=== PATIENT | female | born 1940 | race Caucasian/White ===

== ENCOUNTER 2019-12-28 13:52 | Inpatient (IN) | payer OTHER ==
[~2019-12-28] VITALS: Ht 170.2 cm; Wt 55.5 kg
--- NOTE | ~2019-12-28 | D ---
Formerly [facility] [place] [address] DISCHARGE SUMMARY Name: MCKENNA REY Room #: 519A-A [facility] IN M.R.#: [id number] Admission: 12/28/19 Attend Phys: Pierce Day DO Discharge: 01/12/20 Date of : 38 Report #: [id number] THIS REPORT FOR: cc: KARY - Family physician unknown FAM - Family physician unknown Pierce Day DO ~ THIS REPORT FOR: //name// CC: Pierce PRESTON unknown DATE OF SERVICE: 01/12/2020 INPATIENT PSYCHIATRIC DISCHARGE SUMMARY ATTENDING PHYSICIAN: Pierce Day DO. REBAR BENDER AT THE TIME OF DISCHARGE: Mike Taveras MD DISCHARGE DIAGNOSES: Major neurocognitive disorder, likely due to Alzheimer disease with behavioral disturbance, improved. She also had a complicating delirium due to electrolyte imbalance. Risk of breast cancer treatment suspended. DISCHARGE PLAN: The patient is discharging to ____. The granddaughter, Monika, who was involved in this case. DISCHARGE DIET: Includes a regular. She should get Magic Cup and pudding with meals. Her BMI is 19.2 kilos, as she is underweight. DISCHARGE MEDICATIONS: Xarelto 20 mg p.o. daily with dinner; isosorbide mononitrate 15 mg p.o. daily for cardiovascular disease; metoprolol tartrate 25 mg p.o. b.i.d., hold if heart rate less than 60; Depakote sodium 250 mg p.o. at 0900, 1500 and 2100 for mood stabilization; olanzapine 2.5 mg p.o. in the morning and 6.25 mg p.o. at bedtime for psychosis; Lasix 10 mg p.o. daily, which is her home dose so that was continued; 1000 mcg oral daily B12, 5 mg p.o. at bedtime melatonin for sleep. Melatonin should be given immediately prior to sleep. LABORATORY DATA: Significant laboratories on this admission, white count ____, H and H 12.7 and 38.9, platelet count 202. Also, since the patient was recently on chemotherapy, her absolute neutrophil count was 2.6, which was normal, so she is not leukopenic. Chemistry: Sodium 144, potassium 4.1, chloride 106, bicarbonate 29, anion gap 9, BUN 28, creatinine 0.7, estimated GFR 81, glucose 83, calcium 8.9, total bilirubin 0.3, AST slightly high at 46, ALT low at 23, alkaline phosphatase 57. Ammonia level 15. Total protein 6.3, albumin 3.4. Formerly [facility] [address] [place] [address] DISCHARGE SUMMARY Name: MCKENNA REY [facility] Room #: 519A-A [facility] IN ..#: [id number] Admission: 12/28/19 Attend Phys: Pierce Day, Discharge: 01/12/20 Date of : 38 Report #: [id number] All the chemistry studies were again from 01/10/2020. Urinalysis was last done on 01/02/2020 and was grossly abnormal. The patient did culture positive for Citrobacter freundii, which was actually resistant to Rocephin, but sensitive to Bactrim and she was initially treated with Levaquin. The patient will receive Psychiatric and medical care, I believe, at [facility]. REASON FOR ADMISSION: Back in December is as follows: An 79-year-old female admitted to the [facility] [place] on 12/21/2019. She was admitted there for confusion and was rehydrated unclear why she was there about a week. In any event, we accepted her as a transfer from [facility]. HOSPITAL COURSE: The patient was admitted to Geriatric Psychiatry Unit. The patient early on had some periods of combativeness, agitation. We ____ addressed these with increasing doses of olanzapine, also increased her Depakote, I believe she was on a tiny dose, coming in to 250 mg 3 times a day. The blood level done on 01/01/2020 was 64 and one on 01/10/2020 remained in same range of 59 ____ therapeutic. The patient has had relatively poor intake. The last half or so of the admission, Dr. aTveras did give her suppository on day of discharge. Unfortunately, this is likely going to be a failure to thrive situation with degree of her dementia. PHYSICAL EXAMINATION: VITAL SIGNS: At time of discharge, temperature 36.3, pulse 61, respirations 16, BP 134/50, O2 sat 94%. MUSCULOSKELETAL: Gait not tested, seated in a Beti chair. Variable difficulty arousing today. MENTAL STATUS EXAMINATION: This is a well-developed, ill-appearing, unkempt female appearing older than stated age. Attention impaired. Concentration impaired. Speech variably spontaneous. Some psychomotor retardation. Mood and affect were congruent and constricted. She denied SI, HI. Denied auditory, visual or tactile hallucinations. ____. Memory not formally tested. Insight impaired, judgment impaired. Fund of knowledge well below average. PROGNOSIS: For this patient is guarded to poor given her age of 79, multiple morbidities and advanced major neurocognitive disorder and difficulties over recent months. By: [id number] Pierce Day, DO /nt
[2019-12-28 17:06] VITALS: BP 127/88
--- NOTE | 2019-12-28 17:41 | NUR ---
PT. ARRIVED 1735 TODAY ON STRETCHER. PT. IS AMBULATORY, WHITE, 79 YEAR OLD FEMALE. SHE IS ABOUT 5 FT. 6 INCHES TALL AND WEIGHS 134 LBS. SHE WAS UNCOOPERATIVE AND COMBATIVE WITH ADMISSION PROCESS. SHE SLAPPED THIS ACTIVITIES THERAPIST ON ARM SEVERAL TIMES. SHE PUSHED THE PACKAGE DYEING MACHINE OPERATOR WHEN ATTEMPTED TO TAKE HER PICTURE. SHE HAS BEEN AGRESSIVE, CRYING AND ARGUMENATIVE. SHE WILL NOT ANSWER ANY QUESTIONS. SHE WILL NOT GIVE ANY INFORMATION ABOUT HERSELF. REPORT FROM [facility] RN STATED SHE LIVES WITH HER . ACCORDING TO THE RN AT [facility] SHE WAS GIVEN GEODON YESTERDAY FOR HER BEHAVIORS. SHE HAS A PMHX OF AFIB, RT. BREAST CANCER AND LUMPECTOMY AND HAS A LEFT CHEST PORT FOR CHEMOTHERAPY, SHE HAS A RIGHT SIDED CHEST PACEMAKER, HYSTERECTOMY. SHE IS ON A HEART HEALTHY DIET, SHE IS ALLERGIC TO IODINE, AND SULFA ANTIBIOTICS. FAMILY REPORTS SHE IS ON ROCEPHEN FOR UTI THAT WAS NOT CORRECTED WHILE SHE WAS ON KEFLEX. HER FAMILY REPORTS SHE HAS AUDITORY HALLUCINATIONS WITH UTI'S. HER , JOSE J, IS HER DPOA. HIS PHONE NO. IS [phone]. HER DAUGHTER, HIMANSHU, HELPS WITH HER MEDICATIONS. HER PHONE NO. IS [phone]. SHE IS ALERT AND ORIENTED TIMES ONE (TO HER NAME ONLY).
--- NOTE | 2019-12-29 03:36 | NUR ---
12-28-19 CARE TRANSFERRED 1899 OBSERVED PT STANDING AT NURSING STATION PULLING ON DOOR. 193 PT AAOX1, VSS, RR EVEN AND NONLABORED ON RA, PT COMBATIVE THROUGHOUT ASSESSMENT. PT DENIES PAIN AND SI/HI. PT HAS MULTI CONTUSION BI-LAT IN FOREARMS. PT REPORTS HER IS STANDING RIGHT BESIDE HER AND PT BECOMES AGITATED WITH RN REDIRECTION. DURIN GMEDICATION ADMIN PT HAD NO DIFFICULTIES AND ALLOWED A MANUAL PULSE TO BE TAKEN PT P 68. LATER ASSISTED PT TO BATHROOM AND PT PRESENTS CONFUSED BUT CALM, URINE YELLOW, NO SEDIMENT OR FOUL ODOR NOTED IN TOLIET. LATER PT WAS ASSISTED TO BED AND BED POSITION FOR COMFORT. LATER NOTED PT UP AND PACING, THEN NOTED PT GOING INTO ANOTHER PT ROOM, WHEN TRYING TO REDIRECT PT BECAME COMBATIVE AND STARTING PINCHING AND HITTING. WHILE WALKING WITH PT OUT OF ROOM, PT SAT DOWN RN CONTROLLED MOVEMENT TO GROUND, THEN PT STARTED YELLING AND KICKING. ALL THREE RN'S ASSISTED WITH CONTAINMENT OF PT FOR PT AND STAFF SAFETY. THIS RN WENT TO REVIEWE EMAR WHILE SENIOR RD ENGINEER AND 2ND RN STAYED WITH PT FOR HER SAFETY. REVIEW OF EMAR 4MG HALDOL IM AVAILABLE FOR SEVERE AGITATION. 4MG HALDOL WAS ADMIN INTO RT BUTTOCKS. PT CONTINUE TO HIT AND KICK AT STAFF PT WAS PLACED IN SEBASTIAN CHAIR FOR PT SAFETY AND CLOSE OBSERVATION IN DAY ROOM. A BLANKET WAS GIVEN FOR PT COMFORT. LATER NOTED PT RESTING IN SEBASTIAN CHAIR WITH EYES CLOSED. ZERO S/S OF ACUTE DISTRESS NOTED, PT WILL CONTINUE TO BE MONITOR PER [facility] PROTOCOL.
[2019-12-29 07:32] VITALS: BP 117/92
--- NOTE | 2019-12-29 10:11 | NUR ---
AGUSTINA contacted Liam at [phone]. No answer. AGUSTINA left ms. AGUSTINA team will continue to follow pt during his stay on this unit.
--- NOTE | 2019-12-29 12:50 | NUR ---
PATIENT WAS UP, AND OUT SITTING IN A CHAIR IN DAYROOM WHEN CARE ASSUMED. PATIENT IS ALERT, AND ORIENTED X 1, SHE IS FORGETFUL, AND VERY CONFUSED. PATIENT TOOK MORNING MEDICATION WHOLE WITHOUT LOTS OF ENCOURAGEMENT. PATIENT IS EATING MEALS, AND DRINKING FLUID WELL, FEEDS SELF. PATIENT CONSUMED 100% BREAKFAST, ABOUT 50% LUNCH. PATIENT HAS BEEN CALM, COOPERATIVE WITH CARE. HOSPITAL GOWN CHANGED TO [facility]'S OWN OUTFIT. PATIENT HAD LARGE FORMED BOWEL MOVEMENT THIS MORNING. AFFECT IS SAD/ANGRY, MOOD IS DEPRESSED, WORRIED. PATIENT DENIES HAVING PHYSICAL PAIN. PATIENT AMBULATES WITH SLOW STEADY GAIT. NO AGITATION, AGGRESSIVE BEHAVIOR NOTED AT THIS TIME. NO SIGN OF ACUTE DISTRESS NOTED, WILL MONITOR FOR SAFETY.
[2019-12-29 19:30] VITALS: BP 126/80
--- NOTE | 2019-12-30 04:37 | NUR ---
12-29-19 CARE TRANSFERRED AT 1900 OBSERVED PT STANDING BY NURSING STATION. RECEIVED REPORT FROM GRAIN OPERATIONS MANAGER PT REFUSED VS. 1909 PT AAOX1, RR 18 EVEN AND NONLABORED ON RA, SKIN W/D. PT DENIES PAIN AND SI/HI. PT PRESENTS IRRITABLE AND COMBATIVE DURING NURSING ASSESSMENT REFUSING PT WAS REAPPROACHED 1929 PULSE 111, 02 SAT 94%, PT WOUND NOT ALLOW B/P. PT REAPPROACHED BY INVENTORY ASSISTANT AND B/P 126/80. PT INITIALLY REFUSED HS SNACK, THEN ASKED AGAIN AND PT ATE 100% ICE CREAM CUP. DURING MEDICATION ADMIN PT PRESENTS CONFUSED AND TALKING ABOUT PLACING EVERYTHING INTO THE RIGHT SPOT AND WAS SHOWING AND SHARING HOW SHE WAS ORGANIZING THE TISSUE BOX. PT DID NOT HAVE ANY DIFFICULTIES TAKING MEDICATION WHOLE WITH WATER. LATER PT WENT INTO ANOTHER ROOM AND GRAIN OPERATIONS MANAGER WAS TRYING TO REDIRECT HER WHEN PT BECAME COMBATIVE, ALL RN'S STEP IN AND ASSISTED REDIRECTING PT BACK TO HER OWN ROOM, PT BECAME SEVERALY AGITATED AND BEGAIN HITTING AT NURSING STAFF. 4MG HALDOL ADMIN IM IN BUTTOCKS, PT CONTINUE HITTING STAFF AND PT WAS PLACED IN GERICHAIR FOR PT AND STAFF SAFETY AND PLACED IN DAY ROOM FOR CLOSE OBSERVATION. PT CHAIR WAS PLACED IN COMFORTABLE POSITION WITH BLANKET. LATER NOTED PT WAS CALM AND RESTING WITH EYES CLOSED. NO S/S OF ACUTE DISTRESS NOTED, PT WILL CONTINUE TO BE MONITOR PER [facility] PROTOCOL.
[2019-12-30 11:19] VITALS: BP 120/87
--- NOTE | 2019-12-30 15:07 | NUR ---
12/30/19 DAY SHIFT-PATIENT WAS IN DAYROOM SITTING ON A GERICHAIR ASLEEP WHEN CARE ASSUMED. WHEN AWOKEN, BREAKFAST OFFERED, SHE CONSUMED 100%. PATIENT BECAME IRRITABLE, RESISTING CARE, REFUSED VITAL SIGNS. IT TOOK THREE STAFF, TO ASSIST ON GETTING PATIENT'S VITAL SIGNS. SHE REQUESTED TO BE TAKEN TO THE BATHROOM, TWO STAFF ASSISTED PATIENT TO BATHROOM. PATIENT INITIALLY CHOOSE NOT TO TAKE MORNING MEDICATIONS, BUT WITH LOTS OF ENCOURAGEMENT FROM MULTIPLE STAFF, SHE WAS ABLE TO TAKE THE MEDS WHOLE IN APPLE SOURCE. PATIENT IS IMPULSIVE, IRRITABLE, ATTEMPTING TO SCRATCH, KICK, AND HIT STAFF WHEN ASSISTING HER WITH ADL. PATIENT REMAIN ALERT, AND ORIENTED X 1, SHE IS FORGETFUL, VERY CONFUSED. PATIENT DENIES SUICIDAL/HOMICIDAL IDEATION, NOT ABLE TO APPROPRIATELY RESPOND TO FURTHER ASSESSMENT QUESTIONS DUE TO COGNITIVE IMPAIRMENT. PATIENT CURRENTLY IN DAYROOM, SITTING IN GERICHAIR. NO SIGN OF ACUTE DISTRESS NOTED AT THIS TIME, WILL CONTINUE TO REDIRECT, AND MONITOR FOR SAFETY.
--- NOTE | 2019-12-30 16:54 | NUR ---
AGUSTINA and Dr. Day spoke with Monika about pt and obtained hx. Placement for pt was discussed and it was decided that she will talk with her grandfather, pt's , about funding sources. She also met with an family law attorney. SW team will continue to follow pt during her stay on this unit.
[2019-12-30 19:47] VITALS: BP 126/55
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
[2019-12-31 07:32] VITALS: BP 138/69
--- NOTE | 2019-12-31 08:56 | NUR ---
0700 ASSUMED CARE OF PATIENT, PATIENT SITTING IN GERICHAIR AT THAT TIME. PATIENT SITTING QUIETLY AFTER BREAKFAST. 0850 MEDICATIONS TAKEN WHOLE WITH APPLES SAUCE WITHOUT DIFFICULTY. SOME COUGHING AFTER DRINKING H2O NOTED. NO C/O PAIN STATES "JUST MY STOMACH IS UPSET". PATIENT C/O BEING A BIT COLD. PATIENT HAS BLANKET ON. WILL CONTINUE TO OBSERVE
--- NOTE | 2019-12-31 09:12 | NUR ---
0700 ASSUMED CARE OF PATIENT, PATIENT SITTING IN DAYROOM AT THAT TIME. PATIENT SITTING WITH OTHERS QUIETLY. 0820 PATIENT EATING BREAKFAST. 08 MEDICATIONS TAKEN WHOLE WITHOUT DIFFICULTY. PATIENT CALM AND COOPERATIVE. DENIES NEEDS AT THAT TIME. 904 PATIENT C/O GONZALEZ, TYLENOL 650MG PO GIVEN. PATIENT PRESENT IN GROUP AT THIS TIME.
--- NOTE | 2019-12-31 18:43 | NUR ---
PATIENT NOTED TO HAVE INCREASSED AGGRESSIVNESS WITH CARE. 1500 PATIENT REFUSED MEDICATION, STOCK TRACER CRUSHED MEDICATION AND ATTEMPTED TO GIVE WITH NO SUCCESS. ATTEMPTED AN HOUR LATER AND PATIENT CONTINUED TO REFUSE MEDICATION. DR NOTIFIED ORDER RECIEVED. OLANZAPINE 5MG IM GIVEN TO LEFT DELTOID. PATIENT ATE ONLY A FEW BITES OF DINNER. PATIENT CALM AT THAT TIME.
[2019-12-31 19:20] VITALS: BP 127/54
--- NOTE | 2020-01-01 02:29 | NUR ---
Assumed pt's care this pm shift. Pt was on a ascencion-chair in the dayroom at time of assessment. Pt was easily irritable with care. Meds were crushed and mixed in vanilla pudding. At first, pt declined meds, started slapping her left lap in frustration and in aggitation. Pt declined meds at that time. Nursing held off meds for about 30 mins, went back to pt with meds. Pt took meds at that time and also ate the rest of the wholel cup of pudding. Pt and peer Gemma were sitted across from each other and were talking nonsensical to each other. Pt now in bed and sleeping. Will continue to monitor.
[2020-01-01 07:51] VITALS: BP 142/89
--- NOTE | 2020-01-01 09:19 | NUR ---
0700 ASSUMED CARE OF PATIENT. PATIENT IN DAYROOM SITTING IN SEBASTIAN CHAIR. PATIENT SITTING QUIETLY UNTIL PATIENT IS ASKED QUESTIONS. MEDICATIONS CRUSHED IN APPLESAUCE, PATIENT ONLY HAD A FEW BITED THEN REFUSED MEDICATION. PATIENT BECOMES IRRITABLE PUSHING WRITERS HAND AWAY REFUSING MEDICATION AND BREAKFAST. CONTINUES TO SIT IN DAYROOM WITH EYES CLOSED AT THIS TIME.
--- NOTE | 2020-01-01 12:45 | NUR ---
AGUSTINA spoke with Monika at [phone] who says they have decided that pt will be private pay. However, they are intersted in facities that may take pt on Medicaid at a later date. AGUSTINA sent Monika a list from the medicare.gov website to destiny@[employer] and to Liam at [email or web address]. Monika and AGUSTINA will touch bases on Saturday on what facilities she and Liam want referrals sent to. Monika also said she will try to talk with pt today and convince her to take her medications. AGUSTINA team will continue to follow pt during her stay on this unit.
--- NOTE | 2020-01-01 15:46 | NUR ---
1430 PATIENT TO ROOM VIA SEBASTIAN CHAIR. TRANSFERED TO BED X 2 ASSIST. PATIENTS BRIEF CHANGED, URINE NOTED TO BRIEF. PATIENT COMBATIVE WITH CARES, HITTING AND PINCHING. PATIENT CONTINUES TO SPEAK NONSENSE IN REGARDS TO HOW SHE NEEDS TO GET TO HER AND CARE FOR HIM WELL YELLING AT STAFF TO STOP AND LEAVE HER ALONE. PATIENT REMAINS IN BED WITH EYES CLOSED. 1500 PATIENT HAS EYES CLOSED AND REFUSING TO TAKE MEDICATION, DR MIMS. WILL CONTINUE TO OBSERVE.
--- NOTE | 2020-01-01 18:07 | NUR ---
PATIENT RECIEVED PHONE CALL AROUND 1630, PATIENT ANSWERING SIMPLE QUESTIONS ON THE PHONE. PATIENT CONTINUED TO REST IN BED WITH EYES CLOSED. 1715 MEDICATION GIVEN CRUSHED IN MAGIC CUP, PATIENT ATE ALL 4OZ OF MAGIC CUP. DURING THIS TIME PATIENT TALKING TO SELF TALKING ABOUT PUPPES, FATHER AND GRANDFATHER. PATIENT DID MENTION HOW GOOD THE MAGIC CUP WAS. FEATHER WASHER ASKED APTIENT ABOUT PAIN AND PATIENT RESPONDED WITH "NO". AFTER EATING PATIENT WAS CHANGED WITH ASSIT X2. PATIENT VOIDED X1. PATIENT REPOSITIONED TO BACK AT THAT TIME. PATIENT IN BED RESTING QUIETLY.
[2020-01-01 19:33] VITALS: BP 135/88
--- NOTE | 2020-01-02 02:14 | NUR ---
PT IS CONFUSED. BEEN IN BED SINCE START OF SHIFT. PT OBSERVED WITH MILD AGITATION AT THE START OF SHIFT, BUT SLOWLY SETTLED DOWN. SHE TOOK ALL HER MEDS CRUSHED AND IN PUDDING. IT TAKES A WHILE BECAUSE SHE RESISTS AND PRESENTS SOME SLIGHT AGGRESSION.PT BEEN RESTING IN BED QUIETLY SINCE TAKING MEDS.
[2020-01-02 08:00] VITALS: BP 109/62
--- NOTE | 2020-01-02 09:10 | NUR ---
0700 ASSUMED CARE OF PATIENT, PATIENT IN BED WITH EYES CLOSED. VS BP-109/62 P-97, RESP 16, TEMP- 97.6, O2 SATS- 92%. 0810 MEDICATIONS GIVEN CRUSHED WITH SOME RESISTANCE. PATIENT STATING "I JUST WANT TO SLEEP, LEAVE ME ALONE". AFTER TAKING MEDICATION IN OATMEAL, PATIENT REFUSES TO EAT MORE. WILL CONTINUE TO OBSERVE
--- NOTE | 2020-01-02 11:42 | NUR ---
1130 PATIENT IN BED WITH EYES CLOSED, PCAX2 IN ROOM TO CHANGE PT. BRIEF CHANGED WITH VOID X1. PATIENT IS AGGRESSIVE WITH CARE, PATIENT DUG HER NAILS INTO OFFSET PRESS OPERATOR'S ARM. PATIENT STATES "I LOVE MY PARENT, I JUST WANT TO SEE MY MOM AND DAD". UNABLE TO OBTAIN UA AT THIS TIME. PATIENT TRANSFERED TO SEBASTIAN CHAIR THEN OUT TO DAYROOM FOR LUNCH. UNABLE TO ASK PATIENT QUESTIONS, PATIENT STARTS TALKING ABOUT HER PARENTS. WILL CONTINUE TO OBSERVE
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
--- NOTE | 2020-01-02 15:15 | NUR ---
PATIENT ONLY ATE A 20 % OF LUNCH THEN PUSHED AWAY STAFF WHEN TRYING TO ASSIST WITH MEAL. PATIENT DRANK 200 CC OF ENSURE. PATIENT SITTING IN DAYROOM IN GERICHAIR RESTING WITH EYES CLOSED AT TIMES. 1510 MEDICATION GIVEN CRUSHED IN YOGURT WITHOUT DIFFICULTY. AFTER A FEW BITES PATIENT REFUSING TO EAT MORE OF YOGURT.
[2020-01-02 18:40] LABS: URINE CLARITY CLOUDY; URINE COLOR YELLOW; URINE GLUCOSE-RANDOM* NEGATIVE (Negative); URINE KETONES NEGATIVE (Negative); URINE PROTEIN (DIPSTICK) 2+ (Negative)
[2020-01-02 18:41] LABS: URINE BILIRUBIN NEGATIVE (Negative); URINE BLOOD 3+ (Negative); URINE LEUKOCYTES-REFLEX 3+ (Negative); URINE NITRITE-REFLEX NEGATIVE (Negative); URINE UROBILINOGEN 0.2 E.U./dl (0.2-1.0)
[2020-01-02 18:42] LABS: BACTERIA-REFLEX >30 Many /HPF (None Seen); CASTS None Seen /LPF (None Seen); CRYSTALS None Seen /LPF (None Seen); SQUAMOUS 4-10 Moderate /LPF (0-3); URINE WBC-REFLEX >25 Many /HPF (0-5)
[2020-01-02 18:43] LABS: URINE RBC 3-10 Few /HPF (0-2)
[2020-01-02 20:22] VITALS: BP 125/80
--- NOTE | 2020-01-03 01:28 | NUR ---
PATIENT ASSESSED AND IS ALERT X SELF. IS DELUSIONAL AT TIMES. SITS IN CHAIR AND COMPLAINS AND IS COMBATIVE WITH CARES. IS A VERY POOR EATER TODAY. TAKEN ALL MEDS EXCEPT SMALL I/2 TEASPOON OF MED IN APPLESAUSE.KEEP PUTTING UP HER GOWN IN CHAIR. RESP EVEN AND UNLABORED. NO EDEMA NOTED. SITS IN SEBASTIAN CHAIR FOR THE DAY. LIVES AT HOME WITH HER AND GRANDDAUGHTER. NO SI/HI NOTED. IN CONT OF BOWEL AND BLADDER. REMAINS DELUSIONAL THIS SHIFT. DID SLEEP FAIRLY WELL.CONT PLAN OF CARE. WAS COMBATIVE ON HER CARES AT BEDTIME. LUNGS CTA.
--- NOTE | 2020-01-03 10:49 | NUR ---
0700 ASSUMED CARE OF PATIENT, PATIENT IN BED WITH EYES CLOSED AT THAT TIME. PATIENT DID NOT COME OUT TO DAYROOM FOR BREAKFAST, PATIENT REFUSED. 0850 ELECTRICAL MANUFACTURING TECHNICIAN TO ROOM, ELECTRICAL MANUFACTURING TECHNICIAN WAKES PATIENT UP, PATIENT REPOSITIONED WITH HEAD UP. MEDICATIONS GIVEN CRUSHED IN YOGURT, TAKEN WITHOUT DIFFICULTY. PATIENT FINISHED CONTANER OF YOGURT 4OZ. PATIENT CLEANED UP, BRIEF CHANGED AND TRANSFERED TO SEBASTIAN CHAIR X2 ASSIST. PATIENT IS AWAKE AND MORE ALERT THEN PREVIOUS DAYS. ORIENTED TO SELF. PATIENT IS ASKING FOR AND BELIEVES SHE NEEDS TO LOOK FOR HIM. PATIENT IS CALM AND WAS NOT COMBATIVE WITH CARES THIS AM. PATIENT TO DAYROOM, BREAKFAST HEATED UP AND PATIENT ATE ALL OF FILIPINO TOAST (2 FULL SLICES), 2 OZ OF YOGURT, 4 OZ OF APPLE JUICE AND 4 OZ OF H2O. 1030 FAMILY CALLED PATIENT AND PATIENT TALKED ON PHONE X 10 MIN. PATIENT IS CONFUSED AND RAMBLING ON TO SPOUSE ON PHONE. PATIENT RESTING WITH EYES CLOSED IN GERICHAIR AT THIS TIME. WILL CONTINUE TO OBSERVE.
[2020-01-03 19:24] VITALS: BP 120/79
--- NOTE | 2020-01-04 03:41 | NUR ---
PATIENT RESTING IN SEBASTIAN-CHAIR AT BEGINNING OF SHIFT. REFUSED MEDICATION FROM THIS NURSE WHICH WAS CRUSHED AND MIXED WITH PUDDING ON THE FIRST OFFERING. PATIENT WAS TALKING ABOUT HER SON WANTING THIS NURSE TO CHECK ON HIM. NO SUCCESS WITH REORIENTATING PATIENT WHO SLIGHTLY PUSHED MY ARM AWAY WITH MEDICATION. AFTER MEDICATING OTHER PATIENTS SHE WAS APPROACHED WITH MEDS AND TOOK THEM RIGHT AWAY. REMAINED IN CHAIR THROUGHOUT THE NIGHT. WILL MONITOR.
[2020-01-04 08:50] VITALS: BP 95/70
--- NOTE | 2020-01-04 10:31 | NUR ---
PATIENT CARE ASSUMED AT 0700 - IN SEBASTIAN CHAIR - ALERT TO SELF ONLY - CONFUSED - RAMBLES ON BUT STATEMENTS JUMBLED AND NON SENSIBLE. POOR APPETITE - EASILY DISTRACTED - NO FOCUS. MEDICATIONS CRUSHED AND GIVEN IN PUDDING - RELUCTANT AT FIRST AND TOOK SEVERAL SPOONS AND REFUSED REMAINER BUT ABLE TO ADMINISTER MEDS. INCONTINENT OF BOWEL AND BLADDDER. ASSISTED TO BATHROOM BY STAFF. PATIENT AFFECT FLAT AND MOOD DETACHED AND RESISTIVE TO CARES. DOES NOT KNOW HER LIMITATIONS AND MARGY FALL RISK. MONITORING NEEDED -
--- NOTE | 2020-01-04 13:11 | NUR ---
AGUSTINA received an email from Monika stating she is narrowing her choices for placement and will have a list by end of . SW team will continue to follow pt during her stay on this unit.
--- NOTE | 2020-01-04 15:14 | NUR ---
RT Progress Note- Mary's participation in the milieu and recreation therapy groups has been limited. Mary has been present in morning groups but lacks participation d/t cognition. RT staff will continue to encourage participation to her ability to provide her with structured leisure.
[2020-01-04 19:25] VITALS: BP 102/65
--- NOTE | 2020-01-04 22:25 | NUR ---
Care assumed of patient at 1915: Patient seated in dayroom in ascencion chair at start of shift. Patient alert and oriented to person only. Patient confused and forgetful. Patient having constant, disorganized speech. Patient having difficulty answering yes/no questions. Patient originally irritable and frustrated with nurse yelling "go away". Patient then speaking about how her " is a grown man and can make his own decisions, he doesn't have to stay here if he doesn't want to". No s/s of SI/HI/AH/VH. No physical aggression shown at this time. Patient observed speaking about a democrat and verbally making democrat plans and guest lists. Patient took HS medication crushed in pudding with some initial resistance. Metoprolol was held due to HR reading of 57. Patient was able to report her name and answer that she was not in any pain. No other information was able to be obtained. Patient is currently resting in recliner in dayroom. Frequently waking up and showing restlessness.
[2020-01-05 07:35] VITALS: BP 116/50
--- NOTE | 2020-01-05 09:45 | NUR ---
AGUSTINA spoke with Monika who said her and her grandfather have chosen [facility]. AGUSTINA provided her an update. AGUSTINA received a message from Shelly with [facility] asking her to return her call at [phone]. She asked AGUSTINA to fax her a referral to [phone]. AGUSTINA explained pt is not yet ready, but AGUSTINA will provide updates to her every few days. AGUSTINA team will continue to follow pt during her stay on this unit.
--- NOTE | 2020-01-05 10:39 | NUR ---
PATIENT CARE ASSUMED 0700 - IN DINING ROOM WHEN ARRIVAL ON UNIT. PATIENT SLEEPING IN SEBASTIAN CHAIR. DIFFICULT TO AROUSE.SEVERAL ATTEMPTS MADE - WOULD NOT RESPOND TO ENCOURAGEMENT TO EAT BREAKFAST OR TAKE MORNING MEDICATIONS. REFUSED TO OPEN MOUTH - REPEATEDLY STATING TIRED AND WANTED TO RETURN TO BED. AT 0900 DR. MANNING PLACED ORDER FOR LEVOFLOXAIN FOR UTI DIAGNOSIS BASED ON LAB RESULTS. BY THIS TIME PATIENT SEMI ALERT AND ONCE AGAIN APPROACHED WITH ANTIBIOTIC. ADMINISTERED IN PUDDING ONCE AGAIN CRUSHED AND AFTER REPEATED TRIES FINALLY TOOK WITH PUDDING. SHE CALLS OUT FOR UNKNOWN INDIVIDUAL - ALERT TO SELF AND RAMBLE ON MAKING JUMBLED AND SCRAMBLED THOUGTH PATTERN STATEMENTS INTERMITTENTLY. CURRENTLY DOZING OFF ONCE AGAIN IN SEBASTIAN CHAIR - STATELY VERY TIRED AND DOES NOT FEEL WELL BUT UNABLE TO EXPAND ON THIS. STAFF CONTINUES TO MOITOR PATIENT FOR ANY CHANGES INBEHAVIOR OR CONCERNS AND WILL ADDRESS IF NEEDED.
[2020-01-05 19:21] VITALS: BP 105/41
--- NOTE | 2020-01-05 22:41 | NUR ---
Care assumed of patient at 1915: Patient seated at dining table at start of shift. Patient alert and oriented to person only. Patient pleasantly confused. Patient displayed some disorganized speech but was rather alert and able to converse this evening. When asked if she was having pain, patient said that her tongue hurt. Upon assessment, tongue is cracked, dark red with yellow/white discoloration to top of tongue. Dr. Day on unit and notified. Patient was provided ice cream for HS snack. Patient was able to feed self full cup of ice cream independently. Patient did report that the cold helped reduce pain. Patient took HS medication crushed in pudding without issue then continued to feed self 50% of pudding cup. Patient incontinent of bladder. Cooperative with staff assist x1 with tim care and linen change. No physical or verbal aggression shown. Patient calm and cooperative this evening. Presents with flat affect. Patient having difficulty falling asleep this evening and is currently seated in recliner in dayroom.
[2020-01-06 08:45] VITALS: BP 131/40
--- NOTE | 2020-01-06 09:34 | NUR ---
0700 ASSUMED CARE OF PATIENT, PATIENT SITTING IN SEBASTIAN CHAIR IN DAYROOM. PATIENT HAS EYES CLOSED OFF AND ON. 0820 MEDICATIONS GIVEN CRUSHED WITHOUT DIFFICULTY. PATIENT DID NOT EAT BUT A FEW BITES OF BREAKFAST. PATIENT REMAINS IN DAYROOM WITH EYES CLOSED AT THIS TIME
--- NOTE | 2020-01-06 13:18 | NUR ---
AGUSTINA contacted Shelly with [facility] to provide an update and request palliative care for pt. No answer. AGUSTINA left [facility] [place].
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
--- NOTE | 2020-01-06 18:24 | NUR ---
PATIENT CONTINUES TO LAY IN BED SLEEPING. PATIENT REFUSED DINNER, CORRESPONDENCE SPECIALIST ATTEMPTED TO FEED PATIENT IN BED PATIENT REFUSED. 1700 MEDICATIONS NOT GIVEN DUE TO PATIENT SLEEPING. PATIENT NOTED SNORING AT TIMES.
[2020-01-06 19:17] VITALS: BP 122/60
[2020-01-06 20:45] VITALS: BP 122/60
--- NOTE | 2020-01-07 00:22 | NUR ---
PATIENT HAS BEEN IN BED AND DROWSY AND SLEEPING ALOT SINCE BEGINNING OF THE SHIFT. SHE REFUSED ALL OF HER MEDS ON FIRST ATTEMPT AT HS AND STATED SHE WANTED TO BE LEFT ALONE. HAD SHASHANK Leblanc RN TRY AND GIVE HER MEDS A WHILE LATER. HE WAS ABLE TO GET HER TO TAKE THEM WITH MUCH COAXING. PATIENT IRRITATED WHEN INCONTINENCE CARE BEING DONE AND JUST WANTS LEFT ALONE. SHE HAS NOT BEEN COMBATIVE WITH THE CARES SO FAR TONIGHT, JUST VERBALLY AGITATED. PATIENT IS A/0X1. SHE STATES SHE HAS GENERALIZED PAIN WHEN WE ARE TURNING HER BUT REFUSES TO TAKE ANY MEDS FOR DISCOMFORT. SHE JUST STATES SHE WANTS US TO LEAVE HER ALONE. NO INDICATIONS OF SI/HI/AVH TONIGHT. PATIENT SITS IN SEBASTIAN RECLINER WHEN UP. BARRIER CREAM APPLIED TO REDDENED AREA OF LEFT BUTTOCK. AREA NOT OPENED. BED IN LOW POSTION AND BED ALARM IS ON. ROUTINE ROUNDS TO ASSESS SAFETY AND STATUS OF PATIENT.
--- NOTE | 2020-01-07 06:31 | NUR ---
PATIENT HAS SLEPT SOUNDLY THRU THE NIGHT. SHE WAS AWAKENED PERIODICALLY FOR INCONTINENCE CHECKS AND CARE. EXCEPT FOR GETTING IRRITABLE WITH CARES OR BEING AWAKENED SHE HAS JUST SLEPT. BED IN LOW POSITION AND BED ALARM ON.
[2020-01-07 08:58] VITALS: BP 116/41
--- NOTE | 2020-01-07 09:47 | NUR ---
0700 ASSUMED CARE OF PATIENT, PATIENT IN [facility]ROOM [facility] AT [facility]. PATIENT SLEEPING WITH EYES CLOSED. PATIENT ATE 60% OF MEAL WITH ASSISTANCE. MEDICATIONS GIVEN IN SUPPLEMENT WITHOUT DIFFICULTY. PATIENT ATE 10% OF SUPPLEMENT. PATIENT DRANK 3.5 OZ OF JUICE AND 2 OZ OF H2O. AFTER BREAKFAST [facility] WILL CONTINUE TO OBSERVE
--- NOTE | 2020-01-07 12:28 | NUR ---
SW reviewed pt's nursing notes. AGUSTINA faxed updates for pt to [facility]. SW team will continue to follow pt during her stay on this unit.
--- NOTE | 2020-01-07 15:37 | NUR ---
PATIENT AWAKE AND ALERT, ORIENTED TO SELF. MEDICATION GIVEN IN PUDDING WITHOUT DIFFICULTY. PATIENT ATE 100% OF PUDDING. PATIENT DELUSIONAL AT THIS TIME TALKING ABOUT HER FAMILY AND HOW THEY ARE REACTING TO SOME SITUATION. PATIENT STATES " THEY ARE COMING NOW AND WILL BE UPSET". PATIENT IS CALM AND WHEN ASKED QUESTIONS PATIENT UNABLE TO ANSWER. WILL CONTINUE TO OBSERVE
[2020-01-07 19:36] VITALS: BP 114/41
[2020-01-07 20:20] VITALS: BP 114/41
--- NOTE | 2020-01-07 23:08 | NUR ---
PATIENT HAS BEEN AWAKE AND CALM SITTING IN SEBASTIAN RECLINER IN DINING ROOM TONIGHT. SHE HAS BEEN PLEASANT AND COOPERATIVE. SHE IS A/0X 1. SHE VISITED WITH A MALE PATIENT FOR A WHILE. SHE DENIES PAIN. NO SIGNS OF SI/HI/AVH. SHE HAS NONSENSICAL CONVERSATION. PATIENT TOOK HER MEDS CRUSHED IN PUDDING AND ATE PUDDING A SNACK TONIGHT. HELD HER METOPROLOL D/T DIASTOLIC BP WAS 41. PATIENT STATED SHE WAS TIRED AROUND 2230. TOOK PATIENT TO ROOM AND WHEN LAID HER IN BED SHE SAID SHE DIDN'T WANT TO GO TO BED AND WAS RESISTANT TO LAYING DOWN SO WE PUT HER BACK IN HER RECLINER AND MOVED HER TO THE DINING ROOM WHERE SHE IS SITTING QUIETLY AND PLAYING WITH HER SOCKS. CONTINUING TO MONITOR.
[2020-01-08 07:00] VITALS: BP 100/80
--- NOTE | 2020-01-08 12:43 | NUR ---
AGUSTINA contacted Monika an update and explained that pt may be ready for d/c next week. AGUSTINA team will continue to follow pt during her stay on this unit.
--- NOTE | 2020-01-08 13:03 | NUR ---
Assumed care 0700. Incontinent large amount urine. Fighting staff with cares.
--- NOTE | 2020-01-08 18:10 | NUR ---
During toileting patient tried to grab, scratch staff. Says she is being harmed when no one is touching her. Talks to herself as if she is talking to another person who is not present. Briefs have been saturated. Hold her head down for eating and drinking. Will not hold her head up. Wants to know where family is at this time.
[2020-01-08 19:13] VITALS: BP 99/44
--- NOTE | 2020-01-08 21:23 | NUR ---
Care assumed of patient at 1915: Patient seated in recliner in dayroom at start of shift. Patient alert and oriented to person only. During assessment, patient having constant, disorganized speech. Patient easily frustrated, agitated and attempted to grab and scratch nurse several times. Patient refused HS snack. Patient originally refused HS medications by this nurse. Another nurse was able to give HS medication crushed with less resistance. Patient incontinent of bladder. Required max assist x2 for tim care and linen change due to resistive behaviors. Patient remains on abx for UTI and Nystatin for the dx of thrush. No s/s of pain or discomfort observed. No s/s of adverse affects noted at this time. Patient remains awake in dayroom at this time. No specific delusions, SI/HI/AH/VH expressed or observed.
[2020-01-09 08:00] VITALS: BP 107/39
--- NOTE | 2020-01-09 08:00 | NUR ---
PT SLEEPING THIS AM. PT LYING IN BED AND APPEARS COMFORTABLE.
--- NOTE | 2020-01-09 11:10 | NUR ---
PT STILL SLEEPING AT THIS TIME IN BED.
--- NOTE | 2020-01-09 13:52 | NUR ---
PT IS STILL SLEEPING AT THIS TIME. PT HAS NOT ATE BREAKFAST OR LUNCH AT THIS TIME.
--- NOTE | 2020-01-09 17:02 | NUR ---
TRIED TO WAKE PT UP FOR DINNER. PT STATED GET AWAY FROM ME. OFFERED WATER TO DRINK, PT REFUSED AT THIS TIME. PT WAS NOT INCON. OF URINE.
--- NOTE | 2020-01-09 17:05 | NUR ---
NOTIFIED DR. CHA OF PT STILL SLEEPING TODAY.
--- NOTE | 2020-01-09 18:05 | NUR ---
JOSE J CALLED AND WANTED TO SEE HOW HER MOOD WAS TODAY. TOLD HIM SHE HAS BEEN SLEEPING TODAY AND ASKED IF THAT WAS NORMAL FOR HER. HE TRIED TO TALK TO HER ON THE PHONE AND SHE DIDN'T WAKE UP TO TALK TO HIM. HE WANTED TO LEFT HER KNOW HE CALLED.
[2020-01-09 19:30] VITALS: BP 122/52
[2020-01-09 21:33] VITALS: BP 122/52
--- NOTE | 2020-01-09 23:08 | NUR ---
PATIENT WAS ASLEEP IN BED AT BEGINNING OF SHIFT. SHE AWOKE AROUND 2029 AND ASKED TO SPEAK WITH HER ON THE PHONE. THIS NURSE CALLED HER AND GAVE THE PHONE TO HER. SHE WAS HAND FED YOGURT, PUDDING AND COOKIES SINCE SHE STATES SHE WAS HUNGRY. SHE DRANK A CUP OF ICE WATER. SHE COMPLAINED OF A HEADACHE BEFORE EATING. TYLENOL 650MG PO GIVEN AFTER SHE ATE AND MYLANTA AND ZOFRAN PO GIVEN TO PATIENT FOR C/O NAUSEA. MEDS WERE CRUSHED IN PUDDING. PATIENT TOLERATED WELL. LEVAQUIN AND XARELTO ALSO GIVEN TO HER AT HS D/T SHE WAS TOO SEDATED ON DAY SHIFT TO TAKE MED. PATIENT WENT BACK TO SLEEP. SHE HAS BEEN PLEASANT AND COOPERATIVE. HELD METOPROLOL PO AT HS D/T DIASTOLIC BP WAS 52. BED IN LOW POSITION AND BED ALARM IS ON. ROUTINE ROUNDING TO ASSESS SAFETY AND STATUS OF PATIENT.
[2020-01-10 06:27] LABS: HEMATOCRIT 38.9 % (37.0-47.0); HEMOGLOBIN 12.7 gm/dL (12.0-15.0); MCHC 32.8 g/dL (28.0-37.0); MCV 94.6 fL (80.0-100.0); PLATELET COUNT 202 thou/uL (150-400); RBC 4.11 mil/uL (4.20-5.00); RDW 13.6 % (10.5-14.5); WBC 4.8 thou/uL (4.0-11.0)
[2020-01-10 06:43] LABS: ALBUMIN 3.4 g/dL (3.4-5.0); CALCIUM 8.9 mg/dL (8.5-10.1); CREATININE 0.7 mg/dL (0.6-1.0); POTASSIUM 4.1 mmol/L (3.5-5.1); TOTAL BILIRUBIN 0.3 mg/dL (0.2-1.0); TOTAL PROTEIN 6.3 g/dL (6.4-8.2)
[2020-01-10 06:56] LABS: ABSOLUTE NEUTROPHILS 2.6 thou/uL (1.4-8.2); PLATELET ESTIMATE NORMAL
[2020-01-10 07:44] VITALS: BP 124/56
[2020-01-10 08:00] VITALS: BP 124/56
--- NOTE | 2020-01-10 08:36 | NUR ---
PT OUT IN DINING ROOM SITTING IN RECLINER CHAIR. PT DENIES ANY PAIN. PT STATED THAT SHE WANTED TO KNOW IF HER IS OK AND WHERE HE IS. PT TOOK HER MEDS WHOLE THIS AM. PT STATED SHE HAD TO USE THE BATHROOM. PT LUNGS CLEAR. LBM NOTED 12/29. PT ABLE TO FEED SELF BREAKFAST. PT DENIES ANY HEADACHE.
--- NOTE | 2020-01-10 09:30 | NUR ---
ASSISTED PT TO BSC IN ROOM. PT VOIDED AND WAS COOROPERATIVE WITH CARE. APPLIED CLEAN BRIEF AND PUT BACK TO SALVADOR CHAIR.
--- NOTE | 2020-01-10 17:33 | NUR ---
PT HAS BEEN PLEASANT WITH CARES TODAY AND TAKING MEDS WHOLE. PT VISITED WITH TODAY AND WAS HAVING FLIGHT OF IDEAS WITH CONVERSATION. TALKED ABOUT HIS SON HAD BROKE SOME EGGS ON THE KITCHEN TABLE. THEN SHE TALKED ABOUT SOME KITTENS. PT NEEDED ASSITANCE WITH ADL'S X2 ASSIST.
[2020-01-10 19:43] VITALS: BP 122/49
[2020-01-10 21:00] VITALS: BP 122/49
--- NOTE | 2020-01-11 01:54 | NUR ---
PATIENT UP IN DAYROOM TONIGHT AND IS A/0 X 1. SHE HAS BEEN AWAKE AND TALKING WORD SALAD AND DELUSIONAL AT TIMES AND WANTING US TO GET JOSE J AND ANOTHER SARI AND GO OUT ON THE TOWN. SHE HAS BEEN PLEASANT. SHE HAD SHERBERT FOR A SNACK TONITE AND THEN PUDDING WITH HER MEDS CRUSHED IN IT AT HS. SHE THEN HAD YOGURT AND DESIREE CRACKERS WHEN SHE WAS STATING SHE WAS HUNGRY. PATIENT ABLE TO FEED HERSELF MOST OF SHERBERT AND FED HERSELF DESIREE CRACKERS WITHOUT INCIDENT. SHE DRANK 2 CUPS OF ICE WATER AND A CUP OF APPLE JUICE. NO BM TONITE. PATIENT WAS TOILETED PRN. SHE IS INCONTINENT AT TIMES. PATIENT WITH C/O RIGHT KNEE PAIN AND WAS GIVEN TYLENOL 650MG AND ZOFRAN 4MG TO HELP HER REST AND THE PAIN. PATIENT STILL AWAKE AT MIDNIGHT AND WAS ASSISTED TO THE BATHROOM. PATIENT THEN ASSISTED TO BED. PATIENT LAID AWAKE IN ROOM FOR AN HOUR BUT WAS QUIET. BED IN LOW POSITION AND BED ALARM IS ON. FREQUENT CHECKS TO ASSURE STATUS AND SAFETY OF PATIENT.
[2020-01-11 07:34] VITALS: BP 110/43
--- NOTE | 2020-01-11 11:35 | NUR ---
AGUSTINA received a call from Shelly with BD of LW asking for an update. AGUSTINA provided one. AGUSTINA and Shelly arranged for d/c on 01/11 @ 1300. Shelly asked AGUSTINA to arrange transportation. AGUSTINA contacted [facility] and arranged transportation for the above mentioned time. Trip # is [id number]. AGUSTINA team will continue to follow pt during her stay on this unit.
--- NOTE | 2020-01-11 15:37 | NUR ---
0700 ASSUMED CARE OF PATIENT, PATIENT SITTING UP IN DAYROOM AT THAT TIME. PATIENT EYES CLOSED AND RESTING QUIETLY. PATIENT ATE 50% OF MEAL WITH ASSIST X1. PATIENT ATE 10% OF SUPPLEMENT. MEDICATION GIVEN CRUSHED IN OATMEAL AND MAGIC CUP WITHOUT DIFFICULTY. PATIENT REFUSING LUNCH. 1520 PATIENT ALERT AND ORIENTED TO SELF. PATIENT SITTING QUIETLY. 1520 MEDICATION GIVEN CRUSHED IN ENSURE PUDDING, PATIENT AT 100% OF PUDING (4OZ). PATIENT.
[2020-01-11 19:31] VITALS: BP 118/47
--- NOTE | 2020-01-12 04:54 | NUR ---
Pt. up in recliner chair in the dayroom during the night. She would sleep at short intervals. Pt. refused her meds at first and tried to push this nurses hand away when attempting to give her medications. Came back later and she took them. Pt. is confused and delusional.
[2020-01-12 07:16] VITALS: BP 134/52
--- NOTE | 2020-01-12 11:35 | NUR ---
AGUSTINA received a call from Linda with BD of LW asking for COVID test results AGUSTINA reviewed pt's chart and did not see results or an order for COVID test. AGUSTINA contacted Dr. wiley who said he did not see either; AGUSTINA explained in tx team yesterday it was discussed that Dr. Blackman would order the test. He said he would do so now and that it takes approx 4 hours to get results. AGUSTINA arranged with Linda for her to go forward with transporting pt today, but pt will need to be in quarantine until results come back. AGUSTINA, or nursing staff, will fax COVID results as soon as they are availble. SW team will continue to follow pt during her stay on this unit.
[2020-01-12] MEDS ORDERED: VITAMIN B-12500 MCG PO (12:51)
[2020-01-12] MEDS ORDERED: OLANZAPINE2.5 MG PO (12:51)
[2020-01-12] MEDS ORDERED: MELATONIN5 M1 PO (12:51)
[2020-01-12] MEDS ORDERED: OLANZAPINE ODT5 MG PO (12:51)
[2020-01-12] MEDS ORDERED: XARELTO20 MG PO (12:51)
[2020-01-12] MEDS ORDERED: LASIX 20 MG TAB20 MG PO (12:51)
[2020-01-12] MEDS ORDERED: METOPROLOL TART25 MG PO (12:51)
[2020-01-12] MEDS ORDERED: IMDUR 30 MG TAB30 M1 PO (12:51)
[2020-01-12] MEDS ORDERED: DEPAKOTE SPRIN125 MG PO (12:51)
--- NOTE | 2020-01-12 14:02 | NUR ---
SW D/C NOTE AGUSTINA faxed D/C docs to [facility] of [facility]. SW or nursing staff will fax COVID results when received. AGUSTINA will file confirmation page in pt's file. No other needs for SW team to address at this time.
--- NOTE | 2020-01-12 14:36 | NUR ---
Alert to name only. Calm and cooperative when not disturbed but becomes agitated and attempts to pinch and hit when cares are provided. Denies SI/HI. Lots of confused, spontaneous speech. Able to stand with assistance. Breath sounds clear t/o, without s/o distress. COVID swab per R nare done prior to discharge. Reg HR auscultated. Color pink with brisk capillary refill and palpable peripheral pulses. Pacer palpated per R chest. Infusaport palpated per L upper chest, IJ. +1 edema per lower extremities. Continent of large amt clear yellow urine per commode, also incontinent of urine per brief. Last documented BM was 12/28. Dr. Day aware, contacted Dr. Taveras. Prune juice, MOM and dulcolax supp given. Stool palpated per rectum. Multiple bruises over skin. 1.5 cm lesion on R forehead, zoroastrianism area, cleaned and bandaid applied. Report called to [facility]. Also contacted Liam who is and DPOA, agrees with transfer. Left unit at 1305 per WC with discharge paperwork and glasses. Escorted by Sruthi Mendoza, community outreach manager after [facility] transport called and stated they were here.
== END 2020-01-12 13:00 | disposition home or self-care (01) | DRG 57 ==
LOC: SBH 13:52
PROVIDERS: Psychiatry & Neurology Psychiatry; ADMIT Psychiatry & Neurology Psychiatry; ATTEND Psychiatry & Neurology Psychiatry
DX: G30.9 Alzheimer's disease, unspecified (principal); F01.51 Vascular dementia, unspecified severity, with behavioral disturbance; F02.81 Dementia in other diseases classified elsewhere, unspecified severity, with behavioral disturbance; Z68.1 Body mass index [BMI] 19.9 or less, adult; N39.0 Urinary tract infection, site not specified; R62.7 Adult failure to thrive; E78.5 Hyperlipidemia, unspecified; I48.0 Paroxysmal atrial fibrillation; I10 Essential (primary) hypertension; G47.00 Insomnia, unspecified; F41.9 Anxiety disorder, unspecified; F29 Unspecified psychosis not due to a substance or known physiological condition; F32.9 Major depressive disorder, single episode, unspecified; Z20.828 Contact with and (suspected) exposure to other viral communicable diseases; Z95.0 Presence of cardiac pacemaker; Z90.710 Acquired absence of both cervix and uterus; Z92.21 Personal history of antineoplastic chemotherapy; Z85.3 Personal history of malignant neoplasm of breast
CPT/HCPCS: 10880

== ENCOUNTER 2020-02-05 12:19 | Inpatient (IN) | payer OTHER ==
[~2020-02-05] VITALS: Ht 162.6 cm; Wt 50.8 kg
--- NOTE | ~2020-02-05 | EMS ---
[address] [address] EMS Patient Care Report Name: MCKENNA REY Room #: 452-P ADM IN M.R.#: [id number] Admission: 02/05/20 Attend Phys: Andrea Potter MD Discharge: Date of : 38 Report #: [id number] THIS REPORT FOR: //name// Report Transmitted: 02/06/2020 02:34 EMS Care Summary [facility] MED-ACT Incident [id number] @ 02/05/2020 11:27 Incident Location [address] [place] [address] Patient MCKENNA REY Female, 79 Years 1940 Patient Address [address] [place] [address] Patient History Dementia,Hypertension (HTN),Hyperlipidemia,Gastro-Esophageal Reflux Disease (GERD),Urinary Tract Infection (UTI),Atrial Fibrillation,Anemia,Constipation,Edema, Patient Allergies Sulfa,Iodine, Patient Medications APAP w/Codeine, Cyanocobalamin Co57, Depakote, Metoprolol, Mylanta, Other, Furosemide, Olanzapine, Isosorbide, Melatonin, Chief Complaint Altered Mental Status Disposition Transported No Lights/Constable Dispatch Reason Sick Person Transported To [address] [address] EMS Patient Care Report Name: MCKENNA REY Room #: 452-P [facility] IN M.R.#: [id number] Admission: 02/05/20 Attend Phys: Andrea Potter MD Discharge: Date of : 38 Report #: [id number] Narrative [id number] was dispatched to the listed location for a code 3 sick sill subject. Upon arrival patient was lying supine in her bed in the care of staff and Grant RODRIGUEZ. Staff stated the patient had been having N/V/D for the past 2 days with an increase in AMS. Staff said that the patient has dementia and is normally alert to self and can wheel herself around in a wheelchair but they stated that she had been more altered and not acting herself. It was reported by staff that she had COVID test that morning prior to EMS arrival due to having a low grade fever the previous day of 99.5F. Staff had also mentioned that the patient had not eaten that day which was unusual for her. Patient was unable to follow directions and was violent with EMS crew. Patient would say confused sentences and slap or scratch EMS crew. EMS and FD were able to sheet drag patient from her bed to the cot. EMS started an IV and fluid due to probable dehydration from N/V/D. Patient was unable to follow directions for CPHSS. Initial Vitals @PTAP: 69,BP: 131/52, @12:06P: 64,BP: 148/65,SpO2: 93, @11:50P: 82,R: 18,BP: 154/68,Pain: 0/10,GCS: 12,Temp: 95.9F,Glucose: 96,SpO2: 93,Revised Trauma: 11, @12:11P: 120,BP: 141/84, @11:52P: 67,SpO2: 91,AR Suspected: false Assessments @12:10MENTAL:Combative,Confused,SKIN:HEENT:Head/Face: No Abnormalities,Eyes: No Abnormalities,Neck/Airway: No Abnormalities,LUNG SOUNDS:General: No Abnormalities,Left Upper: No Abnormalities,Right Upper: No Abnormalities,Left Lower: No Abnormalities,Right Lower: No Abnormalities,ABDOMEN:General: No Abnormalities,Left Upper: No Abnormalities,Right Upper: No Abnormalities,Left Lower: No Abnormalities,Right Lower: No Abnormalities,PELVIS//GI:EXTREMITIES:Left Arm: No Abnormalities,Right Arm: No Abnormalities,Left Leg: No Abnormalities,Right Leg: No Abnormalities,PULSE:NEURO:No Abnormalities, Impression Altered Mental Status Procedures @11:50Surgical Mask on PatientResponse: Unchanged@12:05Normal Saline (.9% NaCl) 250cc (22 ga) Site: Forearm-LeftResponse: UnchangedSucceeded Timeline COLLECTIONS REPRESENTATIVE,BP: 131/52 M,PULSE: 69,RR: R,SPO2: Ox,ETCO2: ,BG: ,PAIN: ,GCS: , 11:25,Call Received 11:25,Psap Call [facility] [address] [place] [address] EMS Patient Care Report Name: MCKENNA REY LIBAN Room #: 452-P ADM IN M.R.#: [id number] Admission: 02/05/20 Attend Phys: Andrea Potter MD Discharge: Date of : 38 Report #: [id number] 11:27,Dispatched 11:27,En Route 11:37,On Scene 11:40,At Patient 11:50,BP: 154/68 M,PULSE: 82,RR: 18 R,SPO2: 93 Ox,ETCO2: ,B,PAIN: 0,GCS: 12, 11:50,Surgical Mask on Patient,Response: Unchanged 11:52,BP: / M,PULSE: 67,RR: R,SPO2: 91 Ox,ETCO2: ,BG: ,PAIN: ,GCS: , 12:05,Normal Saline (.9% NaCl) 250cc 22 ga Site: Forearm-Left,Response: UnchangedSucceeded, 12:06,BP: 148/65 M,PULSE: 64,RR: R,SPO2: 93 Ox,ETCO2: ,BG: ,PAIN: ,GCS: , 12:07,Depart Scene 12:11,BP: 141/84 M,PULSE: 120,RR: R,SPO2: Ox,ETCO2: ,BG: ,PAIN: ,GCS: , 12:14,At Destination 12:38,Call Closed Disclaimer v1.1 Copyright 2020 [employer] This EMS Care Summary contains data elements from the applicable legal record (which may be displayed differently). It is designed to provide pertinent information for the following purposes: continuity of care, clinical quality, and state data reporting. The complete legal record is available to ED staff and administrators of the receiving hospital in ES's Patient Tracker. All data is provided "as is."
[~2020-02-05 12:19] MED LIST: DEPAKOTE SPRIN125 MG PO; IMDUR 30 MG TAB30 M1 PO; LASIX 20 MG TAB20 MG PO; MELATONIN5 M1 PO; METOPROLOL TART25 MG PO; OLANZAPINE ODT5 MG PO; OLANZAPINE2.5 MG PO; VITAMIN B-12500 MCG PO; XARELTO20 MG PO
[2020-02-05 12:23] VITALS: BP 120/74
[2020-02-05] MEDS ORDERED: DEPAKOTE250 MG PO (12:29)
[2020-02-05] MEDS ORDERED: ISORDIL5 MG PO (12:30)
[2020-02-05] MEDS ORDERED: FUROSEMIDE 20 M20 M1 PO (12:30)
[2020-02-05] MEDS ORDERED: MELATONIN5 M4 PO (12:31)
[2020-02-05] MEDS ORDERED: LOPRESSOR50 MG PO (12:31)
[2020-02-05] MEDS ORDERED: MILK OF MA400 MG/5 M PO (12:31)
[2020-02-05] MEDS ORDERED: OLANZAPINE10 M1 PO (12:32)
[2020-02-05] MEDS ORDERED: XARELTO20 MG PO (12:32)
[2020-02-05] MEDS ORDERED: ONDANSETRON ODT4 MG PO (12:32)
[2020-02-05 13:01] LABS: URINE BLOOD 3+ (Negative); URINE CLARITY CLOUDY; URINE COLOR YELLOW; URINE GLUCOSE-RANDOM* NEGATIVE (Negative); URINE KETONES 1+ (Negative); URINE NITRITE-REFLEX NEGATIVE (Negative); URINE PROTEIN (DIPSTICK) 1+ (Negative); URINE SPECIFIC GRAVITY 1.025 (1.005-1.035)
[2020-02-05 13:02] LABS: ABSOLUTE NEUTROPHILS 4.1 thou/uL (1.4-8.2); BASOPHILS 0.8 % (0.0-2.0); EOSINOPHILS 0.7 % (0.0-3.0); HEMATOCRIT 43.4 % (37.0-47.0); HEMOGLOBIN 14.1 gm/dL (12.0-15.0); LYMPHOCYTES 24.7 % (24.0-44.0); MCHC 32.4 g/dL (28.0-37.0); MCV 92.7 fL (80.0-100.0); MONOCYTES 11.8 % (1.0-8.0); PLATELET COUNT 162 thou/uL (150-400); RBC 4.69 mil/uL (4.20-5.00); WBC 6.6 thou/uL (4.0-11.0)
[2020-02-05 13:03] LABS: URINE LEUKOCYTES-REFLEX 3+ (Negative)
[2020-02-05 13:04] LABS: ICTOTEST (BILI CONFIRMATORY) Negative (Negative); URINE BILIRUBIN NEGATIVE (Negative)
[2020-02-05 13:12] LABS: AMORPHOUS URATES Moderate /LPF (None Seen); SQUAMOUS 0-3 Few /LPF (0-3); URINE WBC-REFLEX >25 Many /HPF (0-5)
[2020-02-05 13:13] LABS: CASTS None Seen /LPF (None Seen); URINE RBC 3-10 Few /HPF (0-2)
[2020-02-05 13:20] LABS: CALCIUM 9.2 mg/dL (8.5-10.1); CREATININE 1.2 mg/dL (0.6-1.0); POTASSIUM 3.4 mmol/L (3.5-5.1)
[2020-02-05 13:25] LABS: ALBUMIN 3.5 g/dL (3.4-5.0); DIRECT BILIRUBIN 0.5 mg/dL (<0.1-0.2); TOTAL PROTEIN 6.8 g/dL (6.4-8.2)
[2020-02-05 16:53] VITALS: BP 134/54
--- NOTE | 2020-02-05 17:36 | NUR ---
1ST ATTEMPT TO CALL FOR IN PATIENT REPORT. RECIEVING NURSE IN THE MIDDLE OF PT CARE AND WILL RETURN CALL IMAN.
[2020-02-05 18:47] VITALS: BP 120/75
[2020-02-05 19:44] VITALS: BP 159/86
[2020-02-06 01:06] VITALS: BP 138/60
[2020-02-06 04:00] VITALS: BP 150/68
--- NOTE | 2020-02-06 07:34 | NUR ---
ADMITTED FROM ER UNDER 'S CARE. VSS. KEPT NPO FOR ASPIRATION PRECAUTION PENDING ST EVAL AND TX. NO S/S ACUTE DISTRESS NOTED OR REPORTED AT THIS TIME. CARE TRANFERRED TO AM RN AT THIS TIME.
[2020-02-06 07:58] VITALS: BP 152/56
[2020-02-06 09:57] LABS: CALCIUM 8.5 mg/dL (8.5-10.1); CREATININE 0.9 mg/dL (0.6-1.0)
[2020-02-06 15:37] VITALS: BP 141/69
--- NOTE | 2020-02-06 17:30 | NUR ---
PT DISORIENTED X4, VSS, NO APPARENT PAIN. PATIENT INCONTINENT, MUUL CARE GIVEN, PATIENT REFUSES TURNS TODAY. PATIENT NOT IMPULSIVE. PATIENT FAILED SWALLOW STUDY, DOCTOR AWARE. PATIENT NPO AT THIS TIME/ASPIRATION RISK. NO SIGNS OF DISTRESS. WILL CONTINUE TO MONITOR.
[2020-02-06 22:53] VITALS: BP 117/59
--- NOTE | 2020-02-07 02:21 | NUR ---
ASSUMED PT CARE AT 1915. PT IS DISORIENTED X4. PT IS ON ROOM AIR. PT HAS A PORT IN HER RIGHT SIDE CHEST. PT IS INCONTINENT. PT REFUSES WHEN CLEANING HER UP AND PULLS OFF HER GOWN. PERFORMED Q2 TURNS ON PT AND BED CHANGES WHEN NECESSARY. PT MUMBLES AND IS UNABLE TO STATE IF SHE IS IN PAIN. WILL CONTINUE TO MONITOR.
[2020-02-07 05:50] LABS: CALCIUM 8.4 mg/dL (8.5-10.1); CREATININE 0.8 mg/dL (0.6-1.0)
[2020-02-07 06:11] LABS: POTASSIUM 2.9 mmol/L (3.5-5.1)
[2020-02-07 07:36] VITALS: BP 120/64
--- NOTE | 2020-02-07 09:40 | NUR ---
ASSUMED CARE AT 0700 THIS MORNING. PT. WET X 2 AT THIS POINT THIS MORNING AND CHANGED. PT. AGITATED WITH CARE, ATTEMPTING TO HIT OUT AT THIS RN. SHE DID NOT CONNECT. SHE HAS A RIGHT ARM IV WHICH SHE RECEIVES ABO AND K+. SHE ALSO HAS A LEFT CHEST PORT. SHE IS A Q 2 HOURS. SHE BABBLES MOST OF THE TIME BUT DID STATE, "THIS IS MY BED, GET OUT OF HERE!!" THIS RN CHANGED HER.
[2020-02-07 20:35] VITALS: BP 136/79
[2020-02-08 03:58] VITALS: BP 149/49
--- NOTE | 2020-02-08 04:22 | NUR ---
PATIENT ALERT AND ORIENTED TO SELF. LIKES TO STAY CURLED WITH KNEES TO HER CHEST. IVF INFUSING W/O COMPLICATION THROUGH LEFT PORTACATH. INCONTINENT OF URINE, NO BM AT TIME OF NOTE. REMAINS NPO. PATIENT CAN GET RESTLESS AND COMBATIVE. PATIENT HAD AFIB WITH TACHACARDIA. STORES LABORER (CANDACE) NOTIFIED WITH ORDER RECEIVED FOR LOPRESSOR 2.5MG IVP. HEART RATE IN 180'S. EKG DONE AND PLACED IN CHART. RESTING QUIETLY. WILL MONITOR.
--- NOTE | 2020-02-08 06:41 | NUR ---
PATIENT RECEIVED A NEW ORDER FROM CONTINUOUS IMPROVEMENT CONSULTANT (CANDACE) FOR 10MG BOLUS OF CARDIZEM IVP FOR ONETIME ONLY. PATIENT HAD HR OF 120'S-140'S EVEN AFTER PREVIOUS MEDICATION GIVEN. PATIENT RESTING QUIETLY WITH HR OF 115 AT TIME OF NOTE AFTER RECEIVING MEDICATION. WILL MONITOR.
--- NOTE | 2020-02-08 07:38 | EKG ---
[facility] [address] [place] [address] ELECTROCARDIOGRAM REPORT Name: MCKENNA REY Room #: 452- ADM IN M.R.#: [id number] Admission: 02/05/20 Attend Phys: Andrea Potter MD Discharge: Date of : 38 Report #: [id number] THIS REPORT FOR: cc: KARY - No family physician/PCP KARY - No family physician/PCP Gunner Anand MD [facility] THIS REPORT FOR: //name// [facility] Test Date: 2020-02-08 Test Time: 07:23:17 Pat Name: MCKENNA REY Department: Room: 452 Gender: F Learning Design Specialist: DONOVAN : 1940 Requested By: Lauren Crawford Order Number: [id number] MD: Gunner Anand Measurements Intervals [place] Rate: 128 P: [place]: QRS: 82 QRSD: 80 T: -87 QT: 328 QTc: 479 Interpretive Statements Atrial fibrillation Borderline right axis deviation Abnormal R-wave progression, late transition Repol abnrm suggests ischemia, inferior leads No previous ECG available for comparison Electronically Signed On 02-08-2020 7:38:13 CDT by Gunner Anand [email or web address] <ELECTRONICALLY SIGNED> By: Gunner Anand MD, FAC 02/08/2038 2 2 Gunner Anand MD, [facility] /EPI
[2020-02-08 08:13] LABS: CALCIUM 8.7 mg/dL (8.5-10.1); CREATININE 0.8 mg/dL (0.6-1.0); POTASSIUM 3.4 mmol/L (3.5-5.1)
[2020-02-08 08:51] VITALS: BP 153/50
[2020-02-08] MEDS ORDERED: OLANZAPINE2.5 MG PO (09:27)
--- NOTE | 2020-02-08 11:54 | EKG ---
[facility] [address] [place] [address] ELECTROCARDIOGRAM REPORT Name: MCKENNA REY Room #: 452- ADM IN M.R.#: [id number] Admission: 02/05/20 Attend Phys: Andrea Potter MD Discharge: Date of : 38 Report #: [id number] THIS REPORT FOR: cc: KARY - Elysia family physician/PCP KARY - Elysia family physician/PCP Gunner Anand MD [facility] ~ THIS REPORT FOR: //name// [facility] Test Date: 2020-02-08 Test Time: 03:40:45 Pat Name: MCKENNA REY Department: Room: 452 Gender: F Spoilage Worker: Rolando Frazier : 1940 Requested By: Andrea Potter Order Number: [id number] MD: Gunner Anand Measurements Intervals [place] Rate: 167 P: [place]: QRS: 75 QRSD: 86 T: 258 QT: 299 QTc: 499 Interpretive Statements Atrial fibrillation with rapid V-rate Repolarization abnormality, prob rate related Artifact in multiple lead(s) No previous ECG available for comparison Electronically Signed On 02-08-2020 11:54:14 CDT by Gunner Anand [email or web address] <ELECTRONICALLY SIGNED> By: Gunner Anand MD, FAC 02/08/20 1154 0340 0340 Gunner Anand MD, [facility] /EPI
[2020-02-08 12:00] VITALS: BP 111/48
--- NOTE | 2020-02-08 13:21 | 2DMMODE ---
[facility] [address] [place] [address] 2 D/M-MODE ECHOCARDIOGRAM Name: MCKENNA REY [facility] Room #: 201-P ADM IN M.R.#: [id number] Admission: 02/05/20 Attend Phys: Andrea Potter MD Discharge: Date of : 38 Report #: [id number] THIS REPORT FOR: cc: KARY - No family physician/PCP FAM - No family physician/PCP Gunner Anand MD [facility] ~ APPROVED REPORT Study performed: 02/08/2020 12:31:52 EXAM: Comprehensive 2D, Doppler, and color-flow Echocardiogram Patient Location: Bedside Room #: 201 Status: routine BSA: 1.52 HR: 66 bpm BP: 153/50 mmHg Rhythm: Pacemaker Other Information Study Quality: Technically Difficult Technically limited study due to uncooperative patient, inability to position patient. Indications Atrial Fibrillation Pacemaker Hypertension/HDD 2D Dimensions IVSd: 9.90 (7-11mm) LVOT Diam: 18.14 (18-24mm) LVDd: 41.33 mm PWd: 12.28 (7-11mm) Ascending Ao: 29.41 (22-36mm) LVDs: 32.25 (25-40mm) Aortic Root: 30.81 mm Pulmonary Valve PV Peak Daren.: 0.68 m/s PV Peak Gr.: 1.84 mmHg Left Ventricle The left ventricle is normal size. There is global hypokinesis of the left ventricle. There is normal left ventricular wall thickness. Left ventricular systolic function is moderately decreased. LVEF is 40%. This study is not technically sufficient to allow evaluation of the [facility] [address] [place] [address] 2 D/M-MODE ECHOCARDIOGRAM Name: ALEXTAMELAMCKENNA LIBAN Room #: 201-P ADM IN M.R.#: [id number] Admission: 02/05/20 Attend Phys: Paulie Bradley Discharge: Date of : 39 Report #: [id number] LV diastolic function. Right Ventricle The right ventricle is normal size. The right ventricular systolic function is normal. Pacemaker lead is present in the right ventricle. Atria The left atrium size is normal. The right atrium size is normal. Pacemaker lead is present in the right atrium. Aortic Valve The aortic valve is sclerotic. Mild to possibly moderate aortic regurgitation. There is no aortic valvular stenosis. Mitral Valve The mitral valve leaflets are nonspecifically thickened. Mild mitral regurgitation. No evidence of mitral valve stenosis. Tricuspid Valve The tricuspid valve is normal in structure. Trace tricuspid regurgitation. Pulmonic Valve The pulmonary valve is normal in structure. There is no pulmonic valvular regurgitation. Great Vessels The aortic root is normal in size. IVC is normal in size and collapses >50% with inspiration. Pericardium There is no pericardial effusion. <Conclusion> Left ventricular systolic function is moderately decreased. There is global hypokinesis of the left ventricle. LVEF is 40%. The aortic valve is sclerotic. Mild to possibly moderate aortic regurgitation, no stenosis. The mitral valve leaflets are nonspecifically, mildly thickened. Mild mitral regurgitation. [facility] [address] [place] [address] 2 D/M-MODE ECHOCARDIOGRAM Name: MCKENNA REY LIBAN Room #: 201-P ADM IN M.R.#: [id number] Admission: 02/05/20 Attend Phys: Paulie Bradley Discharge: Date of : 38 Report #: [id number] Pulmonary artery pressure could not be reliably ascertained. There is no pericardial effusion. <ELECTRONICALLY SIGNED> By: Gunner Anand MD, FACC 02/08/201320 20 20 Gunner Anand MD, FACC /INF
--- NOTE | 2020-02-08 14:06 | NUR ---
Received awake on bed. On nothing per orem. Patient alert to herself. On telemetry; strips attached to chart; running Afib- Dr Potter informed, a/w orders. On room air. Vital signs stable, elevated HR noted- physician aware. Incontinent of bowel and bladder, checked frequently and changed as needed. With D5% + 20meqs KCL infusing at 100cc/hr, at L chest. With accessed portacath at L chest, dressing C/D/I. Assisted in ADLs. Falls bundle in place. Dr Potter paged again at 7:38am re: pt's high HR 120-130's, running Afib, PVCs, tachycardia; onetime IV diltiazem and IV Metoprolo given earlier by slot shift supervisor but HR remains elevated; no response from physician, house officer Agnieszka informed re: pt's status and no reply from MD, and drying supervisor cooking casing will contact physician again at 7:57am. Dr Potter called back at 8:01am, order obtained for one time 5mg lopressor IV- given as prescribed. Physician and and drying supervisor cooking casing informed re: HR 1 hr post IV lopressor- remained at 120's-130's. Patient to be moved to CCU, orders obtained, house officer aware. Pt's pacemaker interrogated prior to transfer.
[2020-02-08 15:45] VITALS: BP 124/56
[2020-02-08 16:15] VITALS: BP 124/56
[2020-02-08 19:06] VITALS: BP 127/58
--- NOTE | 2020-02-08 19:12 | NUR ---
PT CARE ASSUMED APPROX 1300. ASSESSMENT CHARTED. MEDICATION CHARTED. AFIB; PACEMAKER. LT CHEST PORT-A-CATH. NPO. INCONTINENT OF BOWEL AND BLADDER. PT TURNED 180 DEGREES IN THE BED X 3.
[2020-02-09 05:38] VITALS: BP 142/74
[2020-02-09 08:15] VITALS: BP 149/77
--- NOTE | 2020-02-09 10:25 | NUR ---
Spoke with patients ruben. Patient recently at [facility] on [facility] for agitation/dementia. She resides at [facility] assisted living. Sadafr reports her mother from breast cancer. THeir are 14 grandchildren all involved with care. Sadafr reports when patient discharged from [facility] she has been declining in health. Now patient not eating and sleeping more. Sadafr reports her uncle making decisions but with her input as he is wc bound and frail. Ruben moved here from [place] in October to assist. She is an EMT. Discussed hospice services at home, facility and hospice house. Sadafr to dicuss with family and make desicion.
--- NOTE | 2020-02-09 14:26 | NUR ---
O.T. EVALUATION NOT COMPLETED ORDERED DUE TO DECISION FOR Pt TO RETURN HOME ON HOSPICE PER MESSAGE FROM PHYSICAL THERAPIST.
--- NOTE | 2020-02-09 16:30 | NUR ---
PT WAS GOING TO DC TODAY BACK TO [facility] WITH HOSPICE FAXED DC ORDERS/SUMMARY TO FACILITY SPOKE WITH ADM LIASON BECAUSE THE EARLIEST THAT THE AMBULANCE ([facility]) CAN PICK PT UP IS AT 2030 FACILITY SAID IT WAS TOO LATE TO RECEIVE PT AND HOSPICE AND PT'S FAMILY ALL IN AGREEMENT TO DC TOMORROW MORNING.
[2020-02-09 17:00] VITALS: BP 119/58
--- NOTE | 2020-02-09 17:42 | NUR ---
RECEIVED PT'S CARE AROUND 0710; PT. ON BED; RESTING WITH EYES CLOSED; EQUAL CHEST RISING; APACED ON THE MONITOR; DURING AM ASSESSMENT PT. RESPONSE TO PAIN; ALERT; GRANDAUGHTER AT THE BED SIDE; NO IN APPARENT PAIN; PER PHYSICIAN SALINA TRIALS; ABLE TO HAVE PART OF AM MEDICATIONS; REFUSED MEALS; & GRANDAUGHTER DECIDED TO GO WITH HOSPICE; PHYSICIAN NOTIFIED; CONTRACT TECHNICAL WRITER NOTIFIED; CONTRACT TECHNICAL WRITER AT THE BED SIDE WITH LINHYVONNE; EXPLAINED PROCESS; ST. UNDERSTANDING; DURING THE AFTERNOON HOSPICE NURSE ROUNDING ON PT; FAMILY REQUESTED TO TRANSFER PT. WHEN HOSPITAL BED AVAILABLE AT FACILITY; CONTRACT TECHNICAL WRITER & PHYSICIAN NOTIFIED; APACED ON THE MONITOR; MONITORING; PER CONTRACT TECHNICAL WRITER HOSPICE ADMISSION WILL BE PERFORMED ON 02/10/2020 AT 1100; TRANSPORT ARRANGE TO 1100; ASSESSMENT CHARGED; FOLLOWING POC; WILL PASS ON REPORT;
[2020-02-09 20:03] VITALS: BP 111/31
--- NOTE | 2020-02-10 03:05 | NUR ---
ASSUMED CARE FROM DAY SHIFT PT RESTLESS IN BED , MOVING AND PULLING OUT PADS AND DRAW SHEETS OUT FROM UNDER HER BUTTOCK. ATTEMPTED GIVE THICKEN ICE TEA PT CLOSED MOUTH SHUT. PT LEAVING WEBSITE DESIGNER ON AT THIS TIME WILL CONITNUE TO MONITOR CLOSELY
[2020-02-10 05:18] VITALS: BP 142/71
[2020-02-10 08:15] VITALS: BP 139/82
[2020-02-10] MEDS ORDERED: HALOPERIDOL2 MG/1 ML PO (09:12)
--- NOTE | 2020-02-10 09:55 | NUR ---
RECEIVED PT'S CARE AROUND 0720; PT. ON BED; RESTING WITH EYES CLOSED; EQUAL CHEST RISING NOTICED; APACED ON THE MONITOR; DURING AM ASSESSMENT PT. UPSATE; RESTLESS; REFUSED AM MEDICATIONS; REFUSED BREAKFAST; RESTLESS; ST. "STOP IT STOP IT" "I AM TIRED OF YOU" WHILE GRABBING BIG MACHINE CONSULTANT HANDS; TRIED TO REACH AND HIT BIG MACHINE CONSULTANT; EDUCATED ABOUT PLACE; NO ANSWER BACK; CALLED FOR REPORT AT 0950; REPORT GIVEN TO ANGI MCFARLAND; ASSESSMENT CHARGED; FOLLOWING POC; WORKING ON D/C ORDERS;
== END 2020-02-10 11:39 | disposition hospice, home (50) | DRG 871 ==
LOC: ER 12:19 → 2N 18:52 → 4W 18:52 → EROBS 18:52 → 4W 18:53 → 2N 02-08 12:08
PROVIDERS: Emergency Medicine; ADMIT Hospitalist; ATTEND Hospitalist
PROC: 4B02XSZ Measurement of Cardiac Pacemaker, External Approach (ICD-10-PCS; principal; 2020-02-09)
DX: A41.9 Sepsis, unspecified organism (principal); G93.41 Metabolic encephalopathy; N17.0 Acute kidney failure with tubular necrosis; N39.0 Urinary tract infection, site not specified; E87.0 Hyperosmolality and hypernatremia; I50.20 Unspecified systolic (congestive) heart failure; Z68.1 Body mass index [BMI] 19.9 or less, adult; B37.89 Other sites of candidiasis; R65.20 Severe sepsis without septic shock; F03.90 Unspecified dementia, unspecified severity, without behavioral disturbance, psychotic disturbance, mood disturbance, and anxiety; E86.0 Dehydration; I48.0 Paroxysmal atrial fibrillation; I11.0 Hypertensive heart disease with heart failure; Z66 Do not resuscitate; R62.7 Adult failure to thrive; I08.0 Rheumatic disorders of both mitral and aortic valves; Z85.3 Personal history of malignant neoplasm of breast; Z95.0 Presence of cardiac pacemaker; Z90.710 Acquired absence of both cervix and uterus; Z88.2 Allergy status to sulfonamides; Z91.041 Radiographic dye allergy status; Z79.899 Other long term (current) drug therapy
CPT/HCPCS: 10045; 10081